=== PATIENT | female | born 1990 ===

== ENCOUNTER → 2019-05-15 10:37 | Outpatient (CLI) | payer OTHER | END | disposition home or self-care (01) | LOC: LAB 10:37 | DX: A49.3 Mycoplasma infection, unspecified site (principal) ==

== ENCOUNTER → 2019-06-01 12:01 | Outpatient (CLI) | payer OTHER | END | disposition home or self-care (01) | LOC: LAB 12:01 | DX: J11.1 Influenza due to unidentified influenza virus with other respiratory manifestations (principal) ==